=== PATIENT | female | born 1995 | race Caucasian/White ===

== ENCOUNTER 2017-01-17 08:09 | Emergency (ER) | payer BC ==
[2017-01-17 08:40] LABS: BASOPHILS 0.4 % (0-2); EOSINOPHILS 5.8 % (0-7); HEMATOCRIT 40.2 % (36.0-48.0); HEMOGLOBIN 14.4 g/dL (12-16); IMMATURE GRANULOCYTES 0.1 % (0-5); LYMPHOCYTES 30.3 % (15-50); MCH 32.7 pg (26.0-34.0); MCHC 35.8 g/dL (31.0-37.0); MCV 91.2 fL (80.0-100.0); MEAN PLATELET VOLUME 10.1 fL (7.4-10.4); MONOCYTES 11.4 % (2-11); PLATELET COUNT 344 10x3/uL (130-400); RBC 4.41 10x6/uL (4.00-5.40); WBC 6.9 10x3/uL (4.8-10.8)
[2017-01-17 09:05] LABS: APPEARANCE HAZY (CLEAR); BILIRUBIN NEGATIVE (NEGATIVE); COLOR YELLOW (YELLOW); GLUCOSE NEGATIVE (NEGATIVE); KETONE NEGATIVE (NEGATIVE); LEUKOCYTE ESTERASE NEGATIVE (NEGATIVE); NITRITE NEGATIVE (NEGATIVE); PROTEIN NEGATIVE (NEGATIVE); UROBILINOGEN NORMAL (NORMAL)
[2017-01-17 09:06] LABS: BACTERIA MODERATE /hpf (NONE SEEN); EPITHELIAL CELLS 0-5 /hpf (0-5); WHITE CELLS - URINE 0-5 /hpf (0-5)
== END 2017-01-17 12:00 | disposition home or self-care (01) ==
LOC: D.ER 08:09
PROVIDERS: Family Medicine
DX: O20.0 Threatened abortion (principal); Z3A.08 8 weeks gestation of pregnancy

== ENCOUNTER 2017-01-19 08:30 | Emergency (ER) | payer MEDICAID | END 2017-01-19 09:35 | disposition home or self-care (01) | LOC: D.ER 08:30 | DX: N93.9 Abnormal uterine and vaginal bleeding, unspecified (principal) ==